=== PATIENT | female | born 1985 | race Caucasian/White ===

== ENCOUNTER 2016-07-17 10:39 | Emergency (ER) | payer OTHER | END 2016-07-17 11:00 | disposition home or self-care (01) | LOC: ER 10:39 | DX: J06.9 Acute upper respiratory infection, unspecified (principal); J32.9 Chronic sinusitis, unspecified; F17.210 Nicotine dependence, cigarettes, uncomplicated; Z79.3 Long term (current) use of hormonal contraceptives | CPT/HCPCS: 99282 ==